=== PATIENT | female | born 1970 | race Caucasian/White ===

== ENCOUNTER → 2018-04-01 | Outpatient (CLI) | payer OTHER ==
[~2018-04-01] MED LIST: ACET-1600 PO; AMIT50TA PO; ASCO-96 PO; BACL-19 PO; BISA-49 PO; CELEBREX PO; CEPH-376 PO; DEXL60CA2 PO; DIAZ5TAB4 PO; DICL75TA2 PO; DIPH25CA61 PO; DULO60CA7 PO; ESZO3TAB28 PO; EZET10TA18 PO; FAMO1TAB25 PO; FLUT1AER INH; FURO-93 PO; GABA600T2 PO; HYDR-3245 PO; HYDR-3307 PO; HYDR25TA6 PO; IBUP200C8 PO; LEVO150T PO; LORA1TAB PO; LOSA25TA5 PO; LUBI24CA7 PO; MEXI150C PO; MEXI200C PO; MILN100T PO; NIFE90TA8 PO; OMEP-110 PO; OMEP40CA6 PO; ONDA8TAB9 PO; POTA10CA PO; ROSU10TA PO; ROSU5TAB PO; SAVELLA PO; SUCR1TAB33 PO; TIZA2TAB PO; VIT D2 PO
== END | disposition home or self-care (01) ==
LOC: STAR 13:36
PROVIDERS: ATTEND Internal Medicine Geriatric Medicine
DX: D64.9 Anemia, unspecified (principal)
CPT/HCPCS: 93005

== ENCOUNTER 2018-04-06 11:33 | Day surgery (SDC) | payer OTHER ==
[~2018-04-06] VITALS: Ht 167.6 cm; Wt 106.1 kg
[2018-04-06] MEDS ORDERED: LACTATED RINGERS 1,000 ML IV SCH (11:57)
[2018-04-06 12:30] VITALS: BP 139/84
[2018-04-06] MEDS ORDERED: MIDAZOLAM 1 MG/ML, 2ML ONE (12:33)
[2018-04-06] MEDS ORDERED: FENTANYL PF 100 MCG/2ML ONE (12:33)
[2018-04-06] MEDS ORDERED: EPHEDRINE 50 MG/ML, 1ML ONE (12:37)
[2018-04-06] MEDS ORDERED: SODIUM CHLORIDE 0.9% PF 10ML ONE (12:37)
[2018-04-06] MEDS ORDERED: PROPOFOL 10 MG/ML, 20ML ONE (13:14)
[2018-04-06] MEDS ORDERED: KETAMINE 100 MG/ML, 5ML ONE (13:14)
[2018-04-06] MEDS ORDERED: ONDANSETRON 2MG/ML, 2ML ONE (13:14)
[2018-04-06] MEDS ORDERED: LABETALOL 5MG/ML, 20ML ONE (13:27)
[2018-04-06] MEDS ORDERED: DEXAMETHASONE 4 MG/ML, 1ML ONE ×2 (13:31)
[2018-04-06] MEDS ORDERED: LABETALOL 5MG/ML, 20ML IV PRN (14:00)
[2018-04-06] MEDS ORDERED: FENTANYL PF 100 MCG/2ML IV PRN (14:00)
[2018-04-06] MEDS ORDERED: ONDANSETRON ODT 8 MG PO PRN (14:00)
[2018-04-06] MEDS ORDERED: OXYcodone 5 MG/5 ML ORAL.SOL UDC PO PRN (14:00)
[2018-04-06] MEDS ORDERED: HYDROmorphone 1 MG/ML, 1ML IV PRN (14:00)
[2018-04-06] MEDS ORDERED: MEPERIDINE/PF 25MG/0.5ML IVPush PRN (14:00)
[2018-04-06] MEDS ORDERED: HALOPERIDOL 5 MG/ML IV PRN (14:00)
== END 2018-04-06 15:45 | disposition home or self-care (01) ==
LOC: OUT 11:33
PROVIDERS: ATTEND Internal Medicine Geriatric Medicine
DX: K31.819 Angiodysplasia of stomach and duodenum without bleeding (principal); I10 Essential (primary) hypertension; E78.5 Hyperlipidemia, unspecified; Z88.1 Allergy status to other antibiotic agents; Z88.8 Allergy status to other drugs, medicaments and biological substances; Z98.890 Other specified postprocedural states
CPT/HCPCS: 43239; 43270; 88305; J1100; J2250; J2405; J2704; J3010; J7120

== ENCOUNTER → 2018-04-27 | Outpatient (CLI) | payer OTHER | END | disposition home or self-care (01) | LOC: CFH 14:21 | PROVIDERS: ATTEND Nurse Practitioner Primary Care | DX: I10 Essential (primary) hypertension (principal); E78.5 Hyperlipidemia, unspecified; C50.919 Malignant neoplasm of unspecified site of unspecified female breast; E03.9 Hypothyroidism, unspecified; E78.2 Mixed hyperlipidemia; E55.9 Vitamin D deficiency, unspecified; F51.01 Primary insomnia; F06.4 Anxiety disorder due to known physiological condition; G45.9 Transient cerebral ischemic attack, unspecified; G89.29 Other chronic pain; E61.1 Iron deficiency; Z79.899 Other long term (current) drug therapy; Z78.0 Asymptomatic menopausal state | CPT/HCPCS: 93306 ==

== ENCOUNTER 2018-05-04 05:41 | Day surgery (SDC) | payer OTHER ==
[~2018-05-04] VITALS: Ht 162.6 cm; Wt 108.0 kg
[2018-05-04] MEDS ORDERED: LACTATED RINGERS 1,000 ML IV SCH (06:12)
[2018-05-04 06:28] VITALS: BP 117/78
[2018-05-04 07:00] LABS: ALANINE AMINOTRANSFERASE 51 U/L (12-78); ALBUMIN 3.9 g/dL (3.4-5.0); ANION GAP 8 mmol/L (5-15); CALCIUM 8.5 mg/dL (8.5-10.1); CHLORIDE 105 mmol/L (98-107); CREATININE 0.64 mg/dL (0.55-1.02)
[2018-05-04 07:03] LABS: ALKALINE PHOSPHATASE 94 U/L (45-117); BILIRUBIN,TOTAL 0.2 mg/dL (0.2-1.0); TOTAL PROTEIN 7.5 g/dL (6.4-8.2)
[2018-05-04] MEDS ORDERED: PROPOFOL 10 MG/ML, 20ML ONE (07:47)
[2018-05-04] MEDS ORDERED: PROPOFOL 10 MG/ML, 50ML ONE (07:47)
[2018-05-04] MEDS ORDERED: ACETAMINOPHEN 325 MG TABLET PO PRN (08:00)
[2018-05-04] MEDS ORDERED: ONDANSETRON 2MG/ML, 2ML IV PRN (08:00)
[2018-05-04] MEDS ORDERED: OXYcodone 5 MG/5 ML ORAL.SOL UDC PO PRN (08:00)
[2018-05-04] MEDS ORDERED: FENTANYL PF 100 MCG/2ML IV PRN (08:00)
[2018-05-04] MEDS ORDERED: RANITIDINE 50 MG in SODIUM CHLORIDE 0.9% 100 ML IV SCH (08:00)
[2018-05-04] MEDS ORDERED: ONDANSETRON ODT 8 MG PO PRN (08:00)
[2018-05-04] MEDS ORDERED: FAMOTIDINE 20 MG/2 ML IVPush ONE (08:30)
== END 2018-05-04 10:05 | disposition home or self-care (01) ==
LOC: OUT 05:41
PROVIDERS: ATTEND Internal Medicine
DX: K31.819 Angiodysplasia of stomach and duodenum without bleeding (principal); D50.9 Iron deficiency anemia, unspecified; E03.9 Hypothyroidism, unspecified; K21.9 Gastro-esophageal reflux disease without esophagitis; E78.5 Hyperlipidemia, unspecified; I11.0 Hypertensive heart disease with heart failure; I50.9 Heart failure, unspecified; Z88.1 Allergy status to other antibiotic agents; Z88.8 Allergy status to other drugs, medicaments and biological substances; Z88.0 Allergy status to penicillin; Z86.73 Personal history of transient ischemic attack (TIA), and cerebral infarction without residual deficits; Z98.890 Other specified postprocedural states; Z86.14 Personal history of Methicillin resistant Staphylococcus aureus infection; Z87.891 Personal history of nicotine dependence; Z79.01 Long term (current) use of anticoagulants; Z79.899 Other long term (current) drug therapy; Z79.891 Long term (current) use of opiate analgesic; F41.9 Anxiety disorder, unspecified; Z85.3 Personal history of malignant neoplasm of breast
CPT/HCPCS: 36415; 43248; 80053; J2704; J7120; S0028

== ENCOUNTER → 2018-10-14 | Outpatient (CLI) | payer OTHER ==
[~2018-10-14] MED LIST changes: -DICL75TA2 PO; +DICL75TA3 PO; -GABA600T2 PO; +GABA600T7 PO; +LOSA25TA25 PO; -LOSA25TA5 PO
== END | disposition home or self-care (01) ==
LOC: RAD 10:54
PROVIDERS: ATTEND Internal Medicine
DX: M25.562 Pain in left knee (principal); M25.462 Effusion, left knee; E03.9 Hypothyroidism, unspecified; E78.2 Mixed hyperlipidemia; I10 Essential (primary) hypertension; K21.9 Gastro-esophageal reflux disease without esophagitis; Z79.899 Other long term (current) drug therapy

== ENCOUNTER → 2019-08-11 | Outpatient (CLI) | payer OTHER ==
[~2019-08-11] MED LIST changes: +DICY20TA3 PO; -EZET10TA18 PO; +EZET10TA70 PO; -HYDR-3307 PO; +HYDR-36 PO; +OMEP40CA42 PO; -OMEP40CA6 PO; -ROSU10TA PO; +ROSU10TA2 PO; -TIZA2TAB PO; +TIZA2TAB2 PO
== END | disposition home or self-care (01) ==
LOC: STAR 13:09
PROVIDERS: ATTEND Internal Medicine
DX: Z01.818 Encounter for other preprocedural examination (principal); R13.11 Dysphagia, oral phase; Z86.73 Personal history of transient ischemic attack (TIA), and cerebral infarction without residual deficits; Z85.3 Personal history of malignant neoplasm of breast; Z87.891 Personal history of nicotine dependence
CPT/HCPCS: 93005

== ENCOUNTER 2019-08-16 10:04 | Day surgery (SDC) | payer OTHER ==
[2019-08-11 14:30] LABS: BASOPHILS # (AUTO) 0.08 x10^3/uL (0-0.1); BASOPHILS % (AUTO) 1 % (0-1); EOSINOPHILS % (AUTO) 3 % (1-7); LYMPHOCYTES # (AUTO) 2.85 x10^3/uL (1-3.4); LYMPHOCYTES % (AUTO) 36 % (22-44); MD NO; MEAN CORPUSCULAR HEMOGLOBIN 27.7 pg (27.0-34.8); MEAN CORPUSCULAR HGB CONC 32.1 g/dL (32.4-35.8); MEAN CORPUSCULAR VOLUME 86.3 fL (80-100); MEAN PLATELET VOLUME 8.1 fL (7.4-10.4); MONOCYTES # (AUTO) 0.75 x10^3/uL (0.2-0.8); MONOCYTES % (AUTO) 10 % (2-9); NEUTROPHILS # (AUTO) 4.06 x10^3/uL (1.8-6.8); NEUTROPHILS % (AUTO) 51 % (42-75); PLATELET COUNT 435 x10^3/uL (130-400); RED BLOOD COUNT 5.32 x10^6/uL (3.82-5.3); RED CELL DISTRIBUTION WIDTH 16.5 % (9.6-15.2)
[2019-08-11 14:37] LABS: ALANINE AMINOTRANSFERASE 35 U/L (12-78); ALBUMIN 4.4 g/dL (3.4-5.0); ANION GAP 7 mmol/L (5-15); CALCIUM 9.2 mg/dL (8.5-10.1); CHLORIDE 102 mmol/L (98-107); CREATININE 0.77 mg/dL (0.55-1.02)
[2019-08-11 14:40] LABS: ALKALINE PHOSPHATASE 100 U/L (45-117); BILIRUBIN,TOTAL 0.2 mg/dL (0.2-1.0); TOTAL PROTEIN 8.7 g/dL (6.4-8.2)
[~2019-08-16] VITALS: Ht 167.6 cm; Wt 99.5 kg
[2019-08-16 10:42] VITALS: BP 126/85
[2019-08-16] MEDS ORDERED: LACTATED RINGERS 1,000 ML IV SCH (10:42)
[2019-08-16] MEDS ORDERED: ROSU5TAB PO (10:50)
[2019-08-16] MEDS ORDERED: EZET10TA70 PO (10:50)
[2019-08-16 11:19] LABS: HCG UR SG 1.027 (1.003-1.030)
[2019-08-16] MEDS ORDERED: MIDAZOLAM 1 MG/ML, 2ML ONE (13:02)
[2019-08-16] MEDS ORDERED: FENTANYL PF 100 MCG/2ML ONE (13:03)
[2019-08-16] MEDS ORDERED: PROPOFOL 50 ML ONE (13:04)
[2019-08-16] MEDS ORDERED: HYDROmorphone 2 MG/ML, 1ML IVPush PRN (13:30)
[2019-08-16] MEDS ORDERED: DIPHENHYDRAMINE 50 MG/ML, 1ML IVPush PRN (13:30)
[2019-08-16] MEDS ORDERED: OXYcodone 5 MG/5 ML ORAL.SOL UDC PO PRN (13:30)
[2019-08-16] MEDS ORDERED: FENTANYL PF 100 MCG/2ML IV PRN (13:30)
[2019-08-16] MEDS ORDERED: hydrALAzine 20 MG/ML, 1ML IV PRN (13:30)
[2019-08-16] MEDS ORDERED: LABETALOL 5MG/ML, 20ML IV PRN (13:30)
[2019-08-16] MEDS ORDERED: ACETAMINOPHEN 325 MG TABLET PO PRN (13:30)
[2019-08-16] MEDS ORDERED: PROMETHAZINE 25 MG/ML, 1ML IV PRN (13:30)
[2019-08-16] MEDS ORDERED: MEPERIDINE/PF 25MG/ML,1ML IVPush PRN (13:30)
== END 2019-08-16 15:03 | disposition home or self-care (01) ==
LOC: OUT 10:04
PROVIDERS: ATTEND Internal Medicine
DX: R13.10 Dysphagia, unspecified (principal); K29.50 Unspecified chronic gastritis without bleeding; K21.9 Gastro-esophageal reflux disease without esophagitis; I10 Essential (primary) hypertension; F41.8 Other specified anxiety disorders; E03.9 Hypothyroidism, unspecified; M06.9 Rheumatoid arthritis, unspecified; Z79.1 Long term (current) use of non-steroidal anti-inflammatories (NSAID); Z79.891 Long term (current) use of opiate analgesic; Z79.890 Hormone replacement therapy; Z79.899 Other long term (current) drug therapy; Z88.2 Allergy status to sulfonamides; Z88.8 Allergy status to other drugs, medicaments and biological substances; Z85.3 Personal history of malignant neoplasm of breast; Z90.10 Acquired absence of unspecified breast and nipple; Z90.49 Acquired absence of other specified parts of digestive tract; Z98.890 Other specified postprocedural states; Z83.3 Family history of diabetes mellitus; Z82.49 Family history of ischemic heart disease and other diseases of the circulatory system
CPT/HCPCS: 36415; 43239; 43249; 71045; 80053; 81025; 85025; 88305; J2250; J2704; J3010; J7120; 76000

== ENCOUNTER 2019-09-21 16:40 | Inpatient (IN) | payer OTHER ==
[~2019-09-21] VITALS: Ht 167.6 cm; Wt 100.3 kg
--- NOTE | 2019-09-21 16:54 | NUR ---
PT WITH RECENT PNA, ON ABX SINCE LAST THURSDAY. PT NOW WITH C/O N/V SINCE 0800. PT DENIES DIARHHEA. PT TO BP, CONT PULSE OX
[2019-09-21] MEDS ORDERED: SODIUM CHLORIDE 0.9% 1,000ML IVBOLUS ONE (17:00)
[2019-09-21] MEDS ORDERED: SODIUM CHLORIDE FLUSH 10ML SYR IVF ONE (17:00)
[2019-09-21] MEDS ORDERED: LORazepam 2 MG/ML, 1ML IVPush ONE (17:00)
[2019-09-21] MEDS ORDERED: LORazepam 2 MG/ML, 1ML ONE (17:35)
[2019-09-21 17:40] LABS: BASOPHILS # (AUTO) 0.01 x10^3/uL (0-0.1); BASOPHILS % (AUTO) 0 % (0-1); EOSINOPHILS # (AUTO) 0.22 x10^3/uL (0-0.4); EOSINOPHILS % (AUTO) 1 % (1-7); LYMPHOCYTES # (AUTO) 1.08 x10^3/uL (1-3.4); LYMPHOCYTES % (AUTO) 7 % (22-44); MD NO; MEAN CORPUSCULAR HEMOGLOBIN 28.5 pg (27.0-34.8); MEAN CORPUSCULAR HGB CONC 32.5 g/dL (32.4-35.8); MEAN CORPUSCULAR VOLUME 87.7 fL (80-100); MEAN PLATELET VOLUME 7.8 fL (7.4-10.4); MONOCYTES # (AUTO) 0.68 x10^3/uL (0.2-0.8); MONOCYTES % (AUTO) 4 % (2-9); NEUTROPHILS # (AUTO) 14.45 x10^3/uL (1.8-6.8); NEUTROPHILS % (AUTO) 88 % (42-75); PLATELET COUNT 450 x10^3/uL (130-400); RED BLOOD COUNT 4.96 x10^6/uL (3.82-5.3); RED CELL DISTRIBUTION WIDTH 15.7 % (9.6-15.2)
--- NOTE | 2019-09-21 17:40 | NUR ---
PT MEDICATED PER MAR, NOW TO IMAGING
[2019-09-21] MEDS ORDERED: OXYMETAZOLINE NASAL SPRAY 0.05%,30ML ONE (17:45)
[2019-09-21 17:51] LABS: ALANINE AMINOTRANSFERASE 27 U/L (12-78); ALBUMIN 3.8 g/dL (3.4-5.0); ANION GAP 8 mmol/L (5-15); CALCIUM 9.3 mg/dL (8.5-10.1); CHLORIDE 105 mmol/L (98-107); CREATININE 0.69 mg/dL (0.55-1.02)
[2019-09-21 17:55] LABS: ALKALINE PHOSPHATASE 86 U/L (45-117); BILIRUBIN,TOTAL 0.4 mg/dL (0.2-1.0); TOTAL PROTEIN 8.5 g/dL (6.4-8.2)
[2019-09-21 18:27] LABS: MICROSCOPIC NOT IND
[2019-09-21 18:29] LABS: CULTURE INDICATED? NO
[2019-09-21] MEDS ORDERED: OMNIPAQUE 350 MG/ML, 100ML BOTTLE ONE (18:57)
--- NOTE | 2019-09-21 19:13 | NUR ---
Recieved report from [facility]. Assumed patient care. Patient resting comfortably in bed. Awaiting read for computed tomography imaging.
--- NOTE | 2019-09-21 19:18 | NUR ---
Provider to bedside, updating on plan of care. Awaiting disposition
[2019-09-21] MEDS ORDERED: ONDANSETRON 2MG/ML, 2ML ONE (19:24)
[2019-09-21] MEDS ORDERED: ONDANSETRON 2MG/ML, 2ML IVPush ONE (19:30)
[2019-09-21] MEDS ORDERED: METOCLOPRAMIDE 5 MG/ML, 2ML IVPush ONE (21:00)
[2019-09-21] MEDS ORDERED: METOCLOPRAMIDE 5 MG/ML, 2ML ONE (21:07)
[2019-09-21] MEDS: SODIUM CHLORIDE 0.9% 1,000 ML IV ONE (21:33)
[2019-09-21] MEDS ORDERED: MORPHINE SULFATE 4 MG/ML, 1ML ONE (21:43)
[2019-09-21] MEDS ORDERED: MORPHINE SULFATE 4 MG/ML, 1ML IVPush PRN (22:00)
[2019-09-21 22:10] VITALS: BP 131/82
[2019-09-21 22:12] VITALS: BP 131/82
[2019-09-21] MEDS: MEXILETINE HCL 200 MG CAP PO SCH (22:30)
[2019-09-21] MEDS: BISACODYL 10 MG SUPP PR SCH (22:30)
[2019-09-21] MEDS: LUBIPROSTONE 24 MCG CAPSULE PO SCH (22:30)
[2019-09-21] MEDS: HEPARIN 5,000 UNITS/ML, 1ML SQ SCH (22:30)
[2019-09-21] MEDS ORDERED: DICYCLOMINE 20 MG TABLET PO PRN (22:30)
[2019-09-21] MEDS: MILNACIPRAN HCL 100 MG PO SCH (22:30)
[2019-09-21] MEDS ORDERED: ONDANSETRON 8 MG TABLET PO PRN (22:30)
[2019-09-21] MEDS: SUCRALFATE 1 GM TABLET PO SCH (23:13)
[2019-09-21] MEDS: ATORVASTATIN 20 MG TABLET PO SCH (23:13)
[2019-09-21] MEDS: LOSARTAN 25MG TABLET PO SCH (23:14)
[2019-09-21] MEDS: CEFTRIAXONE PMX 1GM/50ML 50 ML IV SCH (23:14)
[2019-09-21] MEDS: GABAPENTIN 400 MG CAPSULE PO SCH (23:14)
[2019-09-22] MEDS: AZITHROMYCIN 500 MG in SODIUM CHLORIDE 0.9% 250 ML IV SCH (00:04)
[2019-09-22 00:13] VITALS: BP 123/76
[2019-09-22] MEDS: NS + 20MEQ KCL 1,000 ML IV SCH ×3 (01:05→17:07)
[2019-09-22 01:28] LABS: CLOSTRIDIUM DIFFICILE TOXIN NEGATIVE (Negative)
[2019-09-22 01:29] LABS: CLOSTRIDIUM DIFFICILE ANTIGEN POSITIVE
[2019-09-22] MEDS ORDERED: ALBUTEROL SULFATE 2.5 MG/3 ML NPPB PRN (03:00)
[2019-09-22] MEDS: HEPARIN 5,000 UNITS/ML, 1ML SQ SCH ×3 (05:29→22:30)
[2019-09-22] MEDS: SUCRALFATE 1 GM TABLET PO SCH ×4 (05:31→22:30)
[2019-09-22] MEDS: LEVOTHYROXINE 175 MCG TABLET PO SCH (05:31)
[2019-09-22 06:57] LABS: MEAN CORPUSCULAR HEMOGLOBIN 28.3 pg (27.0-34.8); MEAN CORPUSCULAR HGB CONC 32.6 g/dL (32.4-35.8); MEAN CORPUSCULAR VOLUME 86.9 fL (80-100); MEAN PLATELET VOLUME 7.6 fL (7.4-10.4); PLATELET COUNT 365 x10^3/uL (130-400); RED BLOOD COUNT 4.24 x10^6/uL (3.82-5.3); RED CELL DISTRIBUTION WIDTH 15.6 % (9.6-15.2)
[2019-09-22 07:01] LABS: ALANINE AMINOTRANSFERASE 24 U/L (12-78); ALBUMIN 3.2 g/dL (3.4-5.0); ANION GAP 7 mmol/L (5-15); CHLORIDE 109 mmol/L (98-107); CREATININE 0.58 mg/dL (0.55-1.02)
[2019-09-22 07:04] LABS: ALKALINE PHOSPHATASE 70 U/L (45-117); BILIRUBIN,TOTAL 0.2 mg/dL (0.2-1.0); TOTAL PROTEIN 6.9 g/dL (6.4-8.2)
[2019-09-22 07:19] LABS: BASOPHILS # (AUTO) 0.02 x10^3/uL (0-0.1); BASOPHILS % (AUTO) 0 % (0-1); EOSINOPHILS # (AUTO) 0.09 x10^3/uL (0-0.4); EOSINOPHILS % (AUTO) 1 % (1-7); LYMPHOCYTES % (AUTO) 18 % (22-44); MD SCAN; MONOCYTES % (AUTO) 10 % (2-9); NEUTROPHILS # (AUTO) 6.15 x10^3/uL (1.8-6.8); NEUTROPHILS % (AUTO) 70 % (42-75)
[2019-09-22 07:38] VITALS: BP 114/72
[2019-09-22] MEDS: MILNACIPRAN HCL 100 MG PO SCH ×2 (07:42→21:00)
[2019-09-22] MEDS: MEXILETINE HCL 200 MG CAP PO SCH ×3 (07:45→21:00)
[2019-09-22] MEDS: POTASSIUM CHLORIDE 20 MEQ TAB.ER.PRT PO SCH ×2 (08:52→17:07)
[2019-09-22] MEDS: EZETIMIBE 10 MG TABLET PO SCH (08:52)
[2019-09-22] MEDS: VANCOMYCIN 50 MG/ML ORAL SUSP PO SCH ×3 (08:52→20:07)
[2019-09-22] MEDS: FUROSEMIDE 20 MG TABLET PO SCH ×2 (08:53→22:29)
[2019-09-22] MEDS: GABAPENTIN 400 MG CAPSULE PO SCH ×3 (08:53→22:30)
[2019-09-22] MEDS: HYDROCHLOROTHIAZIDE 25 MG TABLET PO SCH (08:53)
[2019-09-22] MEDS: LACTOBACILLUS CHEW TABLET PO SCH ×3 (08:57→22:29)
[2019-09-22] MEDS: PANTOPROZOLE 40MG TABLET PO SCH (08:57)
[2019-09-22] MEDS: LOSARTAN 25MG TABLET PO SCH ×2 (08:57→22:30)
[2019-09-22] MEDS ORDERED: POTASSIUM CHLORIDE 10 MEQ TABLET.ER PO SCH (09:00)
[2019-09-22] MEDS: BISACODYL 10 MG SUPP PR SCH (09:00)
[2019-09-22] MEDS: LUBIPROSTONE 24 MCG CAPSULE PO SCH ×2 (09:41→22:30)
[2019-09-22 13:20] VITALS: BP 112/89
[2019-09-22 18:52] VITALS: BP 128/81
[2019-09-22] MEDS: ACETAMINOPHEN 325 MG TABLET PO PRN (20:06)
[2019-09-22] MEDS: ATORVASTATIN 20 MG TABLET PO SCH (22:29)
[2019-09-22] MEDS: CEFTRIAXONE PMX 1GM/50ML 50 ML IV SCH (22:29)
[2019-09-23] MEDS: AZITHROMYCIN 500 MG in SODIUM CHLORIDE 0.9% 250 ML IV SCH (00:06)
[2019-09-23 00:18] VITALS: BP 134/80
[2019-09-23] MEDS ORDERED: ONDANSETRON 2MG/ML, 2ML IVPush PRN (01:30)
[2019-09-23] MEDS: VANCOMYCIN 50 MG/ML ORAL SUSP PO SCH ×4 (02:35→20:20)
[2019-09-23] MEDS: LEVOTHYROXINE 175 MCG TABLET PO SCH (05:04)
[2019-09-23] MEDS: SUCRALFATE 1 GM TABLET PO SCH ×4 (05:04→20:20)
[2019-09-23] MEDS: HEPARIN 5,000 UNITS/ML, 1ML SQ SCH ×3 (05:04→22:30)
[2019-09-23] MEDS: NS + 20MEQ KCL 1,000 ML IV SCH ×2 (05:05→16:10)
[2019-09-23] MEDS: EZETIMIBE 10 MG TABLET PO SCH (08:23)
[2019-09-23] MEDS: LACTOBACILLUS CHEW TABLET PO SCH ×3 (08:23→20:20)
[2019-09-23] MEDS: HYDROCHLOROTHIAZIDE 25 MG TABLET PO SCH (08:24)
[2019-09-23] MEDS: LOSARTAN 25MG TABLET PO SCH ×2 (08:25→20:20)
[2019-09-23] MEDS: PANTOPROZOLE 40MG TABLET PO SCH (08:29)
[2019-09-23] MEDS: GABAPENTIN 400 MG CAPSULE PO SCH ×3 (08:29→20:20)
[2019-09-23] MEDS: BISACODYL 10 MG SUPP PR SCH (08:32)
[2019-09-23] MEDS: LUBIPROSTONE 24 MCG CAPSULE PO SCH ×2 (08:33→22:30)
[2019-09-23 08:55] VITALS: BP 131/81
[2019-09-23] MEDS: MEXILETINE HCL 200 MG CAP PO SCH ×3 (09:00→21:00)
[2019-09-23] MEDS: MILNACIPRAN HCL 100 MG PO SCH ×2 (09:00→21:00)
[2019-09-23] MEDS: FUROSEMIDE 20 MG TABLET PO SCH ×2 (09:00→20:21)
[2019-09-23 10:20] LABS: ANION GAP 6 mmol/L (5-15); BASOPHILS # (AUTO) 0.02 x10^3/uL (0-0.1); BASOPHILS % (AUTO) 0 % (0-1); CALCIUM 9.4 mg/dL (8.5-10.1); CHLORIDE 109 mmol/L (98-107); CREATININE 0.65 mg/dL (0.55-1.02); EOSINOPHILS # (AUTO) 0.13 x10^3/uL (0-0.4); EOSINOPHILS % (AUTO) 2 % (1-7); LYMPHOCYTES # (AUTO) 1.89 x10^3/uL (1-3.4); LYMPHOCYTES % (AUTO) 21 % (22-44); MD NO; MEAN CORPUSCULAR HEMOGLOBIN 28.4 pg (27.0-34.8); MEAN CORPUSCULAR HGB CONC 32.2 g/dL (32.4-35.8); MEAN CORPUSCULAR VOLUME 88.3 fL (80-100); MEAN PLATELET VOLUME 7.9 fL (7.4-10.4); MONOCYTES # (AUTO) 0.58 x10^3/uL (0.2-0.8); MONOCYTES % (AUTO) 6 % (2-9); NEUTROPHILS # (AUTO) 6.48 x10^3/uL (1.8-6.8); NEUTROPHILS % (AUTO) 71 % (42-75); PLATELET COUNT 407 x10^3/uL (130-400); RED BLOOD COUNT 4.82 x10^6/uL (3.82-5.3); RED CELL DISTRIBUTION WIDTH 15.7 % (9.6-15.2)
[2019-09-23] MEDS: LORazepam 1MG TABLET PO PRN ×2 (11:51→23:38)
[2019-09-23 14:44] VITALS: BP 131/80
[2019-09-23 20:03] VITALS: BP 125/72
[2019-09-23] MEDS: TEMAZEPAM 15 MG CAPSULE PO PRN (20:20)
[2019-09-23] MEDS: ATORVASTATIN 20 MG TABLET PO SCH (20:20)
[2019-09-23] MEDS: CEFTRIAXONE PMX 1GM/50ML 50 ML IV SCH (22:27)
[2019-09-24] MEDS: AZITHROMYCIN 500 MG in SODIUM CHLORIDE 0.9% 250 ML IV SCH (00:07)
[2019-09-24 00:59] VITALS: BP 125/84
[2019-09-24] MEDS: VANCOMYCIN 50 MG/ML ORAL SUSP PO SCH ×5 (02:00→20:38)
[2019-09-24] MEDS: NS + 20MEQ KCL 1,000 ML IV SCH ×2 (02:39→11:38)
[2019-09-24] MEDS: LEVOTHYROXINE 175 MCG TABLET PO SCH (05:39)
[2019-09-24] MEDS: SUCRALFATE 1 GM TABLET PO SCH ×4 (05:39→20:42)
[2019-09-24] MEDS: HEPARIN 5,000 UNITS/ML, 1ML SQ SCH ×3 (05:59→22:25)
[2019-09-24] MEDS: EZETIMIBE 10 MG TABLET PO SCH (07:50)
[2019-09-24] MEDS: GABAPENTIN 400 MG CAPSULE PO SCH ×3 (07:50→20:37)
[2019-09-24] MEDS: LACTOBACILLUS CHEW TABLET PO SCH ×3 (07:50→20:38)
[2019-09-24] MEDS: PANTOPROZOLE 40MG TABLET PO SCH (07:50)
[2019-09-24] MEDS: FUROSEMIDE 20 MG TABLET PO SCH ×2 (07:51→20:37)
[2019-09-24] MEDS: LOSARTAN 25MG TABLET PO SCH ×2 (07:51→20:38)
[2019-09-24] MEDS: HYDROCHLOROTHIAZIDE 25 MG TABLET PO SCH (07:51)
[2019-09-24] MEDS: MEXILETINE HCL 200 MG CAP PO SCH ×3 (08:57→21:00)
[2019-09-24] MEDS: MILNACIPRAN HCL 100 MG PO SCH ×2 (08:58→21:00)
[2019-09-24] MEDS: LUBIPROSTONE 24 MCG CAPSULE PO SCH ×2 (08:58→22:25)
[2019-09-24] MEDS: BISACODYL 10 MG SUPP PR SCH (08:58)
[2019-09-24 09:18] VITALS: BP 129/86
[2019-09-24 12:46] VITALS: BP 145/94
[2019-09-24] MEDS: LORazepam 1MG TABLET PO PRN (13:58)
[2019-09-24 20:32] VITALS: BP 127/83
[2019-09-24] MEDS: TEMAZEPAM 15 MG CAPSULE PO PRN (20:37)
[2019-09-24] MEDS: ATORVASTATIN 20 MG TABLET PO SCH (20:38)
[2019-09-25 01:06] VITALS: BP 103/58
[2019-09-25] MEDS: VANCOMYCIN 50 MG/ML ORAL SUSP PO SCH ×2 (01:29→08:27)
[2019-09-25 05:11] LABS: BASOPHILS # (AUTO) 0.06 x10^3/uL (0-0.1); BASOPHILS % (AUTO) 1 % (0-1); EOSINOPHILS # (AUTO) 0.23 x10^3/uL (0-0.4); EOSINOPHILS % (AUTO) 2 % (1-7); LYMPHOCYTES # (AUTO) 3.25 x10^3/uL (1-3.4); LYMPHOCYTES % (AUTO) 25 % (22-44); MD NO; MEAN CORPUSCULAR HEMOGLOBIN 28.2 pg (27.0-34.8); MEAN CORPUSCULAR HGB CONC 31.8 g/dL (32.4-35.8); MEAN CORPUSCULAR VOLUME 88.7 fL (80-100); MEAN PLATELET VOLUME 7.8 fL (7.4-10.4); MONOCYTES # (AUTO) 1.14 x10^3/uL (0.2-0.8); MONOCYTES % (AUTO) 9 % (2-9); NEUTROPHILS % (AUTO) 65 % (42-75); PLATELET COUNT 444 x10^3/uL (130-400); RED CELL DISTRIBUTION WIDTH 15.9 % (9.6-15.2)
[2019-09-25 05:21] LABS: CHLORIDE 108 mmol/L (98-107)
[2019-09-25 05:27] LABS: ANION GAP 8 mmol/L (5-15); CALCIUM 8.5 mg/dL (8.5-10.1); CREATININE 0.55 mg/dL (0.55-1.02)
[2019-09-25 05:28] LABS: ALANINE AMINOTRANSFERASE 29 U/L (12-78); ALBUMIN 3.6 g/dL (3.4-5.0); ALKALINE PHOSPHATASE 79 U/L (45-117); BILIRUBIN,TOTAL 0.1 mg/dL (0.2-1.0); TOTAL PROTEIN 7.4 g/dL (6.4-8.2)
[2019-09-25] MEDS: HEPARIN 5,000 UNITS/ML, 1ML SQ SCH (06:07)
[2019-09-25] MEDS: SUCRALFATE 1 GM TABLET PO SCH ×2 (06:14→10:35)
[2019-09-25] MEDS: LEVOTHYROXINE 175 MCG TABLET PO SCH (06:15)
[2019-09-25 07:24] VITALS: BP 120/75
[2019-09-25] MEDS: EZETIMIBE 10 MG TABLET PO SCH (08:28)
[2019-09-25] MEDS: HYDROCHLOROTHIAZIDE 25 MG TABLET PO SCH (08:28)
[2019-09-25] MEDS: LACTOBACILLUS CHEW TABLET PO SCH (08:28)
[2019-09-25] MEDS: FUROSEMIDE 20 MG TABLET PO SCH (08:28)
[2019-09-25] MEDS: MILNACIPRAN HCL 100 MG PO SCH (08:28)
[2019-09-25] MEDS: PANTOPROZOLE 40MG TABLET PO SCH (08:29)
[2019-09-25] MEDS: LOSARTAN 25MG TABLET PO SCH (08:29)
[2019-09-25] MEDS: GABAPENTIN 400 MG CAPSULE PO SCH (08:29)
[2019-09-25] MEDS: BISACODYL 10 MG SUPP PR SCH (08:30)
[2019-09-25] MEDS: MEXILETINE HCL 200 MG CAP PO SCH (08:32)
[2019-09-25] MEDS: LUBIPROSTONE 24 MCG CAPSULE PO SCH (08:32)
[2019-09-25] MEDS: ACETAMINOPHEN 325 MG TABLET PO PRN (10:35)
[2019-09-25] MEDS ORDERED: ACID1TAB7 PO (10:38)
[2019-09-25] MEDS ORDERED: CEFD300C37 PO (10:38)
[2019-09-25] MEDS ORDERED: VANC1VIA3 PO (10:38)
[2019-09-25] MEDS ORDERED: DOXY100T23 PO (10:38)
[2019-09-25] MEDS ORDERED: POTASSIUM CHLORIDE 20 MEQ TAB.ER.PRT PO ONE (12:00)
== END 2019-09-25 12:34 | DRG 871 ==
LOC: ED 19:17 → EDIP 21:33 → 3N 22:32 → 4NW 09-24 12:29
PROVIDERS: ADMIT Family Medicine; ATTEND Family Medicine
DX: A41.9 Sepsis, unspecified organism (principal); J18.9 Pneumonia, unspecified organism; A04.72 Enterocolitis due to Clostridium difficile, not specified as recurrent; J98.11 Atelectasis; C50.911 Malignant neoplasm of unspecified site of right female breast; E03.9 Hypothyroidism, unspecified; E78.5 Hyperlipidemia, unspecified; E87.6 Hypokalemia; H66.92 Otitis media, unspecified, left ear; I10 Essential (primary) hypertension; K21.9 Gastro-esophageal reflux disease without esophagitis; K59.00 Constipation, unspecified; N63.20 Unspecified lump in the left breast, unspecified quadrant; G89.29 Other chronic pain; R04.0 Epistaxis; Z82.49 Family history of ischemic heart disease and other diseases of the circulatory system; Z85.3 Personal history of malignant neoplasm of breast; Z86.73 Personal history of transient ischemic attack (TIA), and cerebral infarction without residual deficits; Z90.710 Acquired absence of both cervix and uterus; Z90.49 Acquired absence of other specified parts of digestive tract; Z92.21 Personal history of antineoplastic chemotherapy; Z92.3 Personal history of irradiation
CPT/HCPCS: 36415; 74022; 96361; 96374; 99285; J3370; J7613; 74177; 76642; 80048; 80053; 81003; 83690; 83735; 84443; 84703; 85025; 87070; 87205; 87324; 87493; 87798; 94640; G0378; J0456; J0696; J2405; J3480; Q0162; Q9967; J2060; J2270; J2765; J7030; J7050